=== PATIENT | female | born 1995 | race Caucasian/White ===

== ENCOUNTER 2016-10-13 | Emergency (ER) | payer OTHER ==
--- NOTE | 2016-10-13 13:11 | ED ---
General Adult HPI - General Chief complaint: Extremity Injury, Lower Stated complaint: Knee Pain Time Seen by Provider: 10/13/16 13:01 Source: patient, RN notes reviewed Mode of arrival: wheelchair Limitations: no limitations - History of Present Illness Initial comments: Is a 21-year-old female presents with left knee pain 1 year. Patient states she has been told in the past to get this evaluated via MRI but she never has because she does not want to take work off. Patient states she had increasing pain yesterday but denies any fall or trauma to the left knee. Patient states she does not know why the pain is worse. Patient states it is now difficult to bear weight to the left lower extremity and the pain is worse with flexion and extension of the left knee. Patient states the pain is worst to the medial aspect the left knee. Patient states her left knee sometimes gives out when she is bending at the knees or "locks up" on her. Patient denies any numbness/ weakness or tingling to bilateral lower extremities. Patient denies any recent fever, chills, shortness breath, chest pain, abdominal pain, nausea/vomiting/ diarrhea, back pain, hematuria, headache, or visual changes, or any other complaints. - Related Data Home Medications Medication Instructions Recorded Confirmed No Known Home Medications [No 10/13/16 10/13/16 Known Home Medications] Allergies Allergy/AdvReac Type Severity Reaction Status Date / Time No Known Allergies Allergy Verified 10/13/16 12:59 Review of Systems ROS Statement: Those systems with pertinent positive or pertinent negative responses have been documented in the HPI. ROS Other: All systems not noted in ROS Statement are negative. Past Medical History Past Medical History: No Reported History Additional Past Medical History / Comment(s): kidney stones History of Any Multi-Drug Resistant Organisms: None Reported Past Surgical History: No Surgical Hx Reported Past Psychological History: No Psychological Hx Reported Smoking Status: Current every day smoker Past Alcohol Use History: Occasional Past Drug Use History: None Reported General Exam - General Exam Comments Initial Comments: General: The patient is awake and alert, in no distress, and does not appear acutely ill. Neck: The neck is supple, there is no tenderness or JVD. Cardiovascular: There is a regular rate and rhythm. No murmur, rub or gallop is appreciated. Respiratory: Lungs are clear to auscultation, respirations are non-labored, breath sounds are equal. No wheezes, stridor, rales, or rhonchi. Musculoskeletal: There is tenderness to palpation over the medial and lateral joint lines, left worse than right. There is also tenderness to palpation over the superior and inferior aspects of the left knee. There is no swelling, erythema or ecchymosis. Limited range of motion of left lower extremity due to pain, strength 5/5 and Sensation intact. Posterior tibial pulses 2+ bilaterally. Neurological: A&O x 3. CN II-XII intact, There are no obvious motor or sensory deficits. Coordination appears grossly intact. Speech is normal. Skin: Skin is warm and dry and no rashes or lesions are noted. Psychiatric: Normal mood and affect. Limitations: no limitations Course Vital Signs 10/13/16 12:56 Temperature 98.1 F Pulse Rate 94 Respiratory 18 Rate Blood Pressure 139/93 O2 Sat by Pulse 100 Oximetry Medical Decision Making - Medical Decision Making This is a 21-year-old female presents with an exacerbation of chronic left knee pain. On physical exam there is tenderness along the medial and lateral joint lines of the left knee. There is no swelling, erythema or ecchymosis. Patient' s range of motion is limited with flexion and extension due to pain. Strength is 5/5 and sensation is intact. Posterior tibial pulses 2+ bilaterally. I discussed with patient an x-ray of the left knee, since she has never had one , to rule out any bony in etiology. Patient refused xray at this time stating she just wants an MRI. I discussed that patient will have to follow up with orthopedics for this. I discussed that patient will be given a script for crutches and an Sanket wrap. Discussed rest, ice, elevate and use sanket wrap for compression. Discussed [id number] Tylenol or Motrin as needed for any pain. Discussed that the patient should follow-up with orthopedics as soon as possible. Discussed that patient should follow up with PCP in one to 2 days or return to the [facility] for any worsening symptoms or for any further concerns. Patient was receptive to this plan and patient will be discharged home. Disposition Clinical Impression: Chronic pain of left knee Disposition: HOME SELF-CARE Condition: Good Instructions: Knee Pain (ED) Additional Instructions: Please rest, ice, elevate and use Sanket bandage for compression. Please use over- the-counter Tylenol and or Motrin as needed for any pain. Please follow-up with orthopedics as soon as possible. Please follow-up with family doctor in the next 2 days of symptoms have not improved. Please return to emergency room if the symptoms increase or worsen or for any other concerns. Referrals: Jeff Valladares MD [Primary Care Provider] - 1-2 days Duc Ruiz MD [STAFF PHYSICIAN] - 1-2 days Time of Disposition: 13:18
== END 2016-10-13 13:41 | disposition home or self-care (01) ==
CPT/HCPCS: 99283

== ENCOUNTER → 2016-10-28 | Outpatient (CLI) | payer OTHER ==
--- NOTE | 2016-10-28 15:14 | MR ---
EXAMINATION TYPE: MR knee LT wo con DATE OF EXAM: 10/28/2016 2:49 PM COMPARISON: NONE HISTORY: Left knee pain, injury TECHNIQUE: Multiplanar, multisequence imaging of the left knee is performed without IV contrast. FINDINGS: MEDIAL MENISCUS: Anterior and posterior horns are intact without tear. LATERAL MENISCUS: Anterior and posterior horns are intact without tear. CRUCIATE LIGAMENTS: The anterior and posterior cruciate ligaments are intact and unremarkable. COLLATERAL LIGAMENTS: The medial collateral ligament and lateral collateral ligament complex are inta ct and unremarkable. EXTENSOR MECHANISM: Visualized quadriceps and patellar tendons are intact. EFFUSION: No significant suprapatellar joint effusion. POPLITEAL CYST: No popliteal/luis cyst. TRICOMPARTMENT SPACES: Intact CARTILAGE: Small focal cartilaginous defect lateral femoral condyle. BONE MARROW SIGNAL: No focal abnormal marrow signal is appreciated. OTHER: 8 mm loose body is seen just anterior to the anterior horn lateral meniscus. IMPRESSION: 1. Small cartilaginous defect lateral femoral condyle. 2. Loose body is seen ventral to the anterior horn lateral meniscus.
== END | disposition home or self-care (01) ==
LOC: RADMRIMAIN 13:56
PROVIDERS: ATTEND Orthopaedic Surgery
DX: M23.42 Loose body in knee, left knee (principal); M94.8X6 Other specified disorders of cartilage, lower leg